=== PATIENT | female | born 1945 | race Caucasian/White ===

== ENCOUNTER 2018-04-26 04:23 | Emergency (ER) | payer MEDICARE, OTHER ==
[2018-04-26 04:34] VITALS: TEMP 97.9
[2018-04-26] MEDS ORDERED: DIPH,PERTUS(ACELL)TETVAC-LF 0.5 ML VIAL IM ONE (04:43)
--- NOTE | 2018-04-26 04:48 | ED ---
Fall HPI - General Chief Complaint: Fall Stated Complaint: Fall/Hit Head Time Seen by Provider: 04/26/18 04:42 Source: patient Mode of arrival: ambulatory - History of Present Illness Initial Comments: Vanessa is a pleasant 72-year-old female who presents the emergency department today for evaluation of a laceration to her scalp. Patient reports that she was sleeping comfortably in her bed, her woke up to use the restroom and she believes that may have disturbed her, she subsequently believe she rolled out of bed striking the back of her head on her nightstand. She doesn't believe she lost consciousness. She have any vision changes or headache. She did note that her scalp was bleeding. She states that her left her scalp and noted that she had a pretty large V shaped laceration in decided to bring her to the ER for possible stitches. Patient denies any headache, vision changes, focal neurologic deficits, any loss of consciousness with the fall, any nausea or vomiting, she denies any neck pain. She's been ambulatory since the fall. She does take daily aspirin but is on no other antiplatelet or anticoagulant medications. She denies any other pain or injuries. - Related Data Home Medications Medication Instructions Recorded Confirmed ALPRAZolam [Xanax] 0.25 mg PO BID PRN 04/22/16 06/16/16 Alendronate Sodium [Fosamax] 70 mg PO INGRAM 04/22/16 06/16/16 Aspirin [Adult Low Dose Aspirin EC] 81 mg PO DAILY 04/22/16 06/16/16 Atenolol [Tenormin] 100 mg PO QAM 04/22/16 06/16/16 Calcium Carbonate/Vitamin D3 1 each PO DAILY 04/22/16 06/16/16 [Calcium 500-Vit D3 600 Tablet] Citalopram Hydrobromide [CeleXA] 40 mg PO QAM 04/22/16 06/16/16 Disulfiram [Antabuse] 250 mg PO QAM 04/22/16 06/16/16 Ibuprofen [Motrin] 600 mg PO DIRECTED PRN 04/22/16 06/16/16 Lovastatin [Mevacor] 40 mg PO QAM 04/22/16 06/16/16 Melatonin 3 mg PO HS PRN 04/22/16 06/16/16 Multivitamins, Thera [Multivitamin] 1 tab PO DAILY 04/22/16 06/16/16 Cevimeline [Evoxac] 30 mg PO TID PRN 06/17/16 06/17/16 Allergies Allergy/AdvReac Type Severity Reaction Status Date / Time codeine Allergy Unknown Nausea & Verified 04/26/18 04:34 Vomiting miconazole Allergy Unknown Rash/Hives Verified 04/26/18 04:34 [From Neosporin AF] Review of Systems ROS Statement: Those systems with pertinent positive or pertinent negative responses have been documented in the HPI. ROS Other: All systems not noted in ROS Statement are negative. Past Medical History Past Medical History: Hyperlipidemia, Hypertension Additional Past Medical History / Comment(s): OSTEOPENIA History of Any Multi-Drug Resistant Organisms: None Reported Past Surgical History: Bladder Surgery, Tubal Ligation Additional Past Surgical History / Comment(s): D & C. COLONOSCOPY Past Anesthesia/Blood Transfusion Reactions: No Reported Reaction Past Psychological History: Anxiety, Depression Smoking Status: Former smoker - Past Family History Father Family Medical History: Cancer Sister(s) Family Medical History: Cancer General Exam - General Exam Comments Initial Comments: Physical Exam GENERAL: Patient is well-developed and well-nourished. Patient is nontoxic and well- hydrated and is in no distress. HENT: Normocephalic, no hunt signs Laceration on the right sided parietal temporal scalp, laceration is V-shaped approximately 2 cm in length on each side of the V. EYES: PERRL, EOMI PULMONARY: Unlabored respirations. No audible rales rhonchi or wheezing was noted. CARDIOVASCULAR: There is a regular rate and rhythm without any murmurs gallops or rubs. ABDOMEN: Soft and nontender with normal bowel sounds. SKIN: Skin is clear with no lesions or rashes and otherwise unremarkable. : Deferred NEUROLOGIC: Patient is alert and oriented x3. Moving all extremities spontaneously MUSCULOSKELETAL: Normal extremities with adequate strength and full range of motion. No lower extremity swelling or edema. No calf tenderness. PSYCHIATRIC: Normal psychiatric evaluation. Limitations: no limitations Limitations: no limitations Course Vital Signs 04/26/18 04:32 Temperature 97.9 F Pulse Rate 64 Respiratory 16 Rate Blood Pressure 157/84 O2 Sat by Pulse 93 L Oximetry Procedures - Laceration Laceration #1 Consent Obtained: verbal consent Time Out Performed: Yes Indication: laceration Site: scalp Description: flap Depth: simple, single layer Anesthetic Used: lidocaine 1%, with epi Pre-repair: wound explored, irrigated extensively Size of Sutures: other (staple) Number of Sutures: 9 Patient Tolerated Procedure: well, no complications Medical Decision Making - Medical Decision Making Patient was seen and evaluated history was obtained from the patient and her . Patient rolled out of bed striking the back of her head on her nightstand resulting in a laceration. She had bleeding which was controlled with direct pressure and an ice pack prior to arrival. Patient will loss of consciousness. Patient is uncertain of her last tetanus but believes it was sometime around 2005. Patient does take an aspirin so CT of the head and cervical spine were ordered. There are no other injuries. Cervical spine was cleared via Nexus criteria Patient no midline cervical spine tenderness, no tenderness with range of motion , no distracting injuries, no focal neurologic deficits, no evidence of intoxication CT head and cervical spine with no acute intracranial processes Laceration was anesthetized with topical let, it was irrigated and approximated. Laceration was repaired with 9 jumana patient tolerated the jumana well Staple care was discussed with the patient Closed head injury and return parameters were discussed with the patient and her at bedside All questions pertaining to care were answered best my ability patient was discharged home in stable condition Disposition Clinical Impression: Fall, Scalp laceration, Encounter for administration of vaccine Disposition: HOME SELF-CARE Instructions: Fall Prevention for Older Adults (ED), Staple Care (ED) Is patient prescribed a controlled substance at d/c from ED?: No Referrals: Pilar Sanders MD [Primary Care Provider] - 1-2 days
[2018-04-26] MEDS ORDERED: LIDOCAINE/EPINEPHR/TETRACAINE 5 ML BOTTLE TOPICAL ONE (04:49)
--- NOTE | 2018-04-26 05:44 | CT ---
EXAM: CT Head Without Intravenous Contrast CLINICAL HISTORY: Reason: Pain. Fall with head injury TECHNIQUE: Axial computed tomography images of the head/brain without intravenous contrast. CTDI is 27.7 mGy and DLP is 611.4 mGy-cm. This CT exam was performed using one or more of the following dose reduction techniques: automated exposure control, adjustment of the mA and/or kV according to patient size, and/or use of iterative reconstruction technique. COMPARISON: No relevant prior studies available. FINDINGS: Brain: No evidence of acute transcortical cerebral infarction or intracranial hemorrhage. No abnormal mass effect or midline shift. No abnormal extra-axial collections. Mild cerebral atrophy and chronic white matter ischemic changes. Ventricles: Unremarkable. Bones/joints: No skull fracture identified. Soft tissues: Mild right parietal scalp soft tissue swelling/contusion and probable laceration. Sinuses: Imaged paranasal sinuses are clear. Mastoid air cells: Mastoid sinuses are clear. IMPRESSION: No evidence of acute intracranial abnormality. EXAM: CT Cervical Spine Without Intravenous Contrast CLINICAL HISTORY: Reason: Pain. Fall with head injury TECHNIQUE: Axial computed tomography images of the cervical spine without intravenous contrast. CTDI is 12.3 mGy and DLP is 395.3 mGy-cm. This CT exam was performed using one or more of the following dose reduction techniques: automated exposure control, adjustment of the mA and/or kV according to patient size, and/or use of iterative reconstruction technique. COMPARISON: No relevant prior studies available. FINDINGS: Vertebrae: Cervical vertebral height and alignment are within normal limits. No evidence of acute cervical fracture or subluxation. Advanced multilevel cervical disc disease, spondylosis and moderate facet joint arthropathy. Discs/spinal canal: No significant osseous cervical spinal stenosis. Soft tissues: No abnormal prevertebral soft tissue swelling. Bilateral carotid vascular calcifications. Lung apices: Biapical pleural-parenchymal scarring and apical bullous changes. IMPRESSION: No evidence of acute cervical fracture or subluxation.
[2018-04-26 06:33] VITALS: BP 197/100; PULSE 61; RESP 18
== END 2018-04-26 06:33 | disposition home or self-care (01) ==
LOC: EC 04:23
DX: S01.01XA Laceration without foreign body of scalp, initial encounter (principal); E78.5 Hyperlipidemia, unspecified; I10 Essential (primary) hypertension; M85.80 Other specified disorders of bone density and structure, unspecified site; F41.9 Anxiety disorder, unspecified; F32.9 Major depressive disorder, single episode, unspecified; Z23 Encounter for immunization; Z87.891 Personal history of nicotine dependence; Z98.51 Tubal ligation status; Z98.890 Other specified postprocedural states; Z79.82 Long term (current) use of aspirin; Z79.83 Long term (current) use of bisphosphonates; Z79.899 Other long term (current) drug therapy; Z88.1 Allergy status to other antibiotic agents; Z88.5 Allergy status to narcotic agent
CPT/HCPCS: 12002; 70450; 72125; 90471; 90715; 99283

== ENCOUNTER → 2018-10-09 | Outpatient (CLI) | payer MEDICARE, OTHER ==
--- NOTE | 2018-10-09 15:05 | CT ---
EXAMINATION TYPE: CT chest wo con DATE OF EXAM: 10/09/2018 COMPARISON: NONE HISTORY: Follicular lymphoma per order. CT DLP: 339.30 mGycm. Automated Exposure Control for Dose Reduction was Utilized. TECHNIQUE: CT scan of the thorax is performed without IV contrast. FINDINGS: LUNGS: Moderate underlying emphysematous change is present most prominent in the upper lobes. There i s 5 x 4 mm groundglass nodule anteriorly right midlung axial image 29. There is 4 x 3 mm scarlike [place] inferior medial to this axial image 32. There is bibasilar linear scarring and/or atelectasis. T here is 2 to 3 mm lateral left mid lung nodule axial image 28. No pleural effusion or pneumothorax is noted bilaterally. MEDIASTINUM: Lack of IV contrast is noted to limit evaluation for mediastinal and especially hilar ad enopathy. There are no definitive greater than 1 cm hilar or mediastinal lymph nodes. No cardiomega ly or pericardial effusion is seen. Main pulmonary artery measures 2.8 cm diameter axial image 24. Th ere is moderate to severe 3 vessel coronary artery calcification and/or coronary stents, correlate cl inically. There is mild to moderate calcified plaque of aorta extending into branch vessels. OTHER: Liver is diffusely low dense consistent with fatty infiltration. IMPRESSION: Moderate emphysematous change without acute pulmonary process. Scattered small nodules me asuring up to 5 mm in diameter. Advise CT follow-up in one year time to reassess as per Fleischner So ciety recommendations.
== END | disposition home or self-care (01) ==
LOC: RADCTMAIN 12:51
PROVIDERS: ATTEND Internal Medicine Sleep Medicine
DX: J43.9 Emphysema, unspecified (principal); R91.8 Other nonspecific abnormal finding of lung field
CPT/HCPCS: 71250

== ENCOUNTER → 2018-10-19 | Outpatient (CLI) | payer MEDICARE, OTHER ==
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
--- NOTE | 2018-10-23 07:58 | MM ---
Reason for exam: screening (asymptomatic). Last mammogram was performed 1 year and 6 months ago. History: Patient is postmenopausal and is nulliparous. Physical Findings: A clinical breast exam by your physician is recommended on an annual basis and results should be correlated with mammographic findings. MG 3D Screening Mammo W/Cad Bilateral CC and MLO view(s) were taken. Prior study comparison: April 12, 2017, mammogram, performed at [facility]. April 06, 2016, mammogram, performed at [facility]. There are scattered fibroglandular densities. No significant changes when compared with prior studies. ASSESSMENT: Benign, BI-RAD 2 RECOMMENDATION: Routine screening mammogram of both breasts in 1 year.
== END | disposition home or self-care (01) ==
LOC: RADMAMWWP 12:55
PROVIDERS: ATTEND Internal Medicine
DX: Z12.31 Encounter for screening mammogram for malignant neoplasm of breast (principal); M85.851 Other specified disorders of bone density and structure, right thigh; M85.852 Other specified disorders of bone density and structure, left thigh
CPT/HCPCS: 77063; 77067; 77080

== ENCOUNTER → 2019-04-03 | Outpatient (CLI) | payer MEDICARE, OTHER ==
--- NOTE | 2019-04-04 04:45 | CT ---
EXAMINATION TYPE: CT chest wo con DATE OF EXAM: 04/03/2019 COMPARISON: 10/09/2018 HISTORY: 73-year-old female solitary pulmonary nodule. Follow up nodule per patient. No complaints a t time of scan. TECHNIQUE: Contiguous axial scanning of the chest without IV contrast. Coronal and sagittal reconstru ctions performed. CT DLP: 266.8 mGycm Automated exposure control for dose reduction was used. FINDINGS: The heart is normal size without pericardial effusion. Extensive coronary vessel calcifications are p resent. Mild aortic valvular calcifications. Ascending aorta ectatic at 3.6 cm measured on sagittal series with moderate atherosclerotic arch calc ifications and bovine configuration to the aortic arch. No thoracic lymphadenopathy by CT size criteria. Redemonstrated moderate emphysematous change with mild diffuse bronchial wall thickening. Right great er than left apical pleural parenchymal scarring. 5 mm anterior right midlung pulmonary nodule, axial image 32, stable. Tiny 3 mm peripheral left midlung pulmonary nodule axial image 29 is less defined. 4 mm right upper lobe pulmonary nodule, axial image 28 unchanged. No new pulmonary nodules are seen. No consolidation or pleural effusion. Visualized upper abdomen shows a hilar splenule. Bones: No osseous destructive process. Degenerative disc disease partially seen in the lower cervical spine. IMPRESSION: 1. COPD WITH MODERATE EMPHYSEMA. 2. A FEW SCATTERED PULMONARY NODULES MEASURING UP TO 5 MM REMAIN UNCHANGED FOR 6 MONTHS. AN ADDITIONA L 6-12 MONTH FOLLOW-UP CAN REASSESS.
== END | disposition home or self-care (01) ==
LOC: RADCTMAIN 12:18
PROVIDERS: ATTEND Internal Medicine Sleep Medicine
DX: J43.9 Emphysema, unspecified (principal); R91.1 Solitary pulmonary nodule
CPT/HCPCS: 71250

== ENCOUNTER → 2020-02-08 | Outpatient (CLI) | payer MEDICARE, OTHER ==
--- NOTE | 2020-02-12 08:51 | MM ---
Reason for exam: screening (asymptomatic). Last mammogram was performed 1 year and 4 months ago. History: Patient is postmenopausal and is nulliparous. Physical Findings: A clinical breast exam by your physician is recommended on an annual basis and results should be correlated with mammographic findings. MG 3D Screening Mammo W/Cad Bilateral CC and MLO view(s) were taken. Prior study comparison: October 19, 2018, bilateral MG 3d screening mammo w/cad. April 12, 2017, mammogram, performed at [facility]. There are scattered fibroglandular densities. There is chronic nodularity in the left breast. No significant changes when compared with prior studies. ASSESSMENT: Negative, BI-RAD 1 RECOMMENDATION: Routine screening mammogram of both breasts in 1 year.
== END | disposition home or self-care (01) ==
LOC: RADMAMWWP 11:25
PROVIDERS: ATTEND Family Medicine
DX: Z12.31 Encounter for screening mammogram for malignant neoplasm of breast (principal)
CPT/HCPCS: 77063; 77067

== ENCOUNTER → 2020-09-08 | Outpatient (CLI) | payer MEDICARE, OTHER ==
--- NOTE | 2020-09-08 11:21 | US ---
EXAMINATION TYPE: US gallbladder DATE OF EXAM: 09/08/2020 COMPARISON: NONE CLINICAL HISTORY: 75-year-old female R10.10 Upper abdominal pain. TECHNIQUE: Multiple sonographic images of the right upper quadrant are obtained. FINDINGS: EXAM MEASUREMENTS: Liver Length: 10.7 cm Gallbladder Wall: 0.2 cm CBD: 0.4 cm Right Kidney: 9.5 x 4.2 x 4.3 cm Pancreas: Small portion of the pancreatic neck is visualized. Remainder is obscured by bowel gas sha dowing. Liver: Slightly echogenic in appearance. No focal lesion. Gallbladder: No stones seen Evidence for sonographic Salazar's sign: No CBD: wnl Right Kidney: No hydronephrosis. IMPRESSION: Slightly echogenic appearance to the liver. This may reflect mild fatty infiltration. No gallstones o r biliary ductal dilatation.
== END ==
LOC: RADUSWWP 07:53
PROVIDERS: ATTEND Family Medicine
DX: R10.10 Upper abdominal pain, unspecified (principal)
CPT/HCPCS: 76705

== ENCOUNTER → 2020-12-22 | Outpatient (CLI) | payer MEDICARE, OTHER ==
--- NOTE | 2020-12-24 14:47 | BD ---
EXAMINATION TYPE: Axial Bone Density DATE OF EXAM: 12/22/2020 COMPARISON: 10.19.2018 CLINICAL HISTORY: 75 YR OLD FEMALE......ICD-10 CODE: Z78.0 POST MENOPAUSAL Height: 63.4 Weight: 171 FRAX RISK QUESTIONS: NOTHING ADDITIONAL TO ADD HERE RISK FACTORS HISTORY OF: Postmenopausal woman: YES, AT AGE 57 YRS OLD Take estrogen and/or progesterone medications: YES, FOR ABOUT 4 YRS ....NONE NOW Hyperparathyroidism: NO Adrenal Insufficiency: NO MEDICATIONS: Osteoporosis Medications: YES, ALTENOL, FOR ABOUT 15-20 YRS Additional Medications: BP MEDS, CHOLESTEROL MEDS, VIT D AND CALCIUM Additional History: HYPERTENSION, CHOLESTEROL... EXAM MEASUREMENTS: Bone mineral densitometry was performed using the [employer] System. Bone mineral density as measured about the Lumbar spine is: ----- L1-L4(G/cm2): 1.344 T Score Values are as follows: ----- L1: -0.4 ----- L2: 0.6 ----- L3: 2.1 ----- L4: 2.9 ----- L1-L4: 1.4 Bone mineral density has: Increased 3.0% since study of: 10.19.2018 Bone mineral density about the R hip (g/cm2): 0.864 Bone mineral density about the L hip (g/cm2): 0.874 T Score values are as follows: -----R Neck: -1.5 -----L Neck: -1.7 -----R Total: -1.1 -----L Total: -1.1 Bone mineral density has: Increased 1.3% since study of: 10.19.2018 FRAX%s: THERE IS A 11.2% CHANCE FOR A MAJOR OSTEOPOROTIC FX AND A 2.2% FOR HIP.....PROBABILITY FOR FX IN 10 YRS TIME IMPRESSION: Osteopenia (T Score between -2.5 and -1). There is slightly increased risk of fracture and the patient may be considered for treatment. Re-Screen 2-5 years. NOTE: T-SCORE=SD OF THE YOUNG ADULT MEAN.
== END | disposition home or self-care (01) ==
LOC: RADBDWWP 11:16
PROVIDERS: ATTEND Family Medicine
DX: Z13.820 Encounter for screening for osteoporosis (principal); M85.89 Other specified disorders of bone density and structure, multiple sites; Z78.0 Asymptomatic menopausal state
CPT/HCPCS: 77080

== ENCOUNTER 2021-06-23 17:35 | Inpatient (IN) | payer MEDICARE, OTHER ==
--- NOTE | 2021-06-23 17:47 | ED ---
Fall HPI - General Chief Complaint: Fall Stated Complaint: FALL Time Seen by Provider: 06/23/21 17:40 Source: EMS Mode of arrival: EMS - History of Present Illness Initial Comments: 75-year-old female presents to the emergency department for a fall. States that on Tuesday she attempted to get up from the couch and felt extremely dizzy. She ended up falling backwards and hit her head on the carpet. She sustained a laceration which was bleeding. She did not have any loss of consciousness and she is not on any blood thinners. She lives alone and was unable to get up off the floor. She crawled to her bed and states that she has been laying there since Tuesday. She has been unable to get up and make food for herself. States that she has continued to be able to drink her UV blue vodka. States that she normally drinks 2 shots a night. Today she called her niece and nephew who ended up calling an ambulance. She is complaining of neck pain and therefore they put her in a c-collar. She was given 100 g of fentanyl by EMS prior to arrival. She denies having any chest pain or shortness of breath prior to the incident. No nausea or vomiting. Denies headaches or visual changes. No numbness, tingling or weaknesses in her extremities. No other alleviating, precipitating or modifying factors - Related Data Home Medications Medication Instructions Recorded Confirmed Aspirin [Adult Low Dose Aspirin EC] 81 mg PO DAILY 04/22/16 06/23/21 Atenolol [Tenormin] 100 mg PO DAILY 04/22/16 06/23/21 Atorvastatin Calcium [Lipitor] 40 mg PO HS 06/23/21 06/23/21 Escitalopram [Lexapro] 10 mg PO DAILY 06/23/21 06/23/21 Memantine [Namenda] 10 mg PO BID 06/23/21 06/23/21 Previous Rx's Medication Instructions Recorded Acetaminophen Tab [Tylenol] 650 mg PO Q6HR PRN tab 06/26/21 Calcium Carbonate [Tums] 1,000 mg PO QID PRN tab 06/26/21 Folic Acid 1 mg PO DAILY@1200 tab 06/26/21 Ibuprofen [Motrin] 400 mg PO Q6HR PRN tab 06/26/21 Thiamine [Vitamin B-1] 100 mg PO BID-W/MEALS tab 06/26/21 Allergies Allergy/AdvReac Type Severity Reaction Status Date / Time codeine Allergy Unknown Nausea & Verified 06/23/21 21:53 Vomiting miconazole Allergy Unknown Rash/Hives Verified 06/23/21 21:53 [From Neosporin AF] Review of Systems ROS Statement: Those systems with pertinent positive or pertinent negative responses have been documented in the HPI. ROS Other: All systems not noted in ROS Statement are negative. Past Medical History Past Medical History: Hyperlipidemia, Hypertension Additional Past Medical History / Comment(s): OSTEOPENIA History of Any Multi-Drug Resistant Organisms: None Reported Past Surgical History: Bladder Surgery, Tubal Ligation Additional Past Surgical History / Comment(s): D & C. COLONOSCOPY Past Anesthesia/Blood Transfusion Reactions: No Reported Reaction Past Psychological History: Anxiety, Depression Smoking Status: Former smoker Past Alcohol Use History: Occasional Past Drug Use History: None Reported - Past Family History Father Family Medical History: Cancer Sister(s) Family Medical History: Cancer Mother Family Medical History: Myocardial Infarction ([place]) Additional Family Medical History / Comment(s): Mother of a [place] at the age of 62 yrs. General Exam Limitations: no limitations General appearance: alert, in no apparent distress Head exam: Present: normocephalic, other (5 cm laceration right occiput. mild yellow drainage. no bleeding) Eye exam: Present: normal appearance, PERRL, EOMI. Absent: scleral icterus, conjunctival injection, periorbital swelling ENT exam: Present: normal exam, mucous membranes moist Neck exam: Present: normal inspection. Absent: tenderness, meningismus, lymphadenopathy Respiratory exam: Present: normal lung sounds bilaterally, chest wall tenderness (right sided). Absent: respiratory distress, wheezes, rales, rhonchi, stridor Cardiovascular Exam: Present: regular rate, normal rhythm, normal heart sounds. Absent: systolic murmur, diastolic murmur, rubs, gallop, clicks GI/Abdominal exam: Present: soft, normal bowel sounds. Absent: distended, tenderness, guarding, rebound, rigid Extremities exam: Present: normal inspection, full ROM, normal capillary refill. Absent: tenderness, pedal edema, joint swelling, calf tenderness Back exam: Present: normal inspection Neurological exam: Present: alert, oriented X3, CN II-XII intact Psychiatric exam: Present: normal affect, normal mood Skin exam: Present: warm, dry, intact, normal color. Absent: rash Course Vital Signs 06/23/21 06/23/21 06/23/21 17:39 19:15 22:00 Temperature 98.5 F Pulse Rate 94 79 83 Pulse Rate [ Pulse Oximetery ] Pulse Rate [ Right] Respiratory 20 20 20 Rate Blood Pressure 172/93 176/88 166/76 Blood Pressure [Right Arm] O2 Sat by Pulse 95 95 96 Oximetry 06/23/21 06/24/21 06/24/21 23:30 02:00 07:54 Temperature 97.5 F L 98 F Pulse Rate 97 Pulse Rate [ Pulse Oximetery ] Pulse Rate [ 99 103 H Right] Respiratory 20 18 20 Rate Blood Pressure 141/91 Blood Pressure 123/76 153/89 [Right Arm] O2 Sat by Pulse 99 97 90 L Oximetry 06/24/21 06/24/21 06/24/21 08:35 08:37 15:04 Temperature 97.8 F Pulse Rate Pulse Rate [ 99 72 Pulse Oximetery ] Pulse Rate [ 103 H Right] Respiratory 20 18 16 Rate Blood Pressure Blood Pressure 118/65 [Right Arm] O2 Sat by Pulse 99 98 Oximetry Medical Decision Making - Medical Decision Making Upon arrival patient is placed into room 3. A thorough history and physical exam was performed. Laboratory studies are conducted. Patient was given 500 cc saline. Laboratory studies are conducted and the patient is sent for a CT of her head and cervical spine. X-rays of her right ribs and chest is also performed. Laboratory studies are reviewed and demonstrate a creatinine of 1.1. AST and ALT mildly elevated. Serum alcohol is on Lasix. Covid not detected. CT of the brain and cervical spine demonstrates no acute intracranial process. Nonspecific white matter changes likely secondary to chronic small vessel ische dayanara disease. No cervical spine fracture. We did clean the patient's posterior scalp laceration. Measures approximately 5 cm in size. Wound edges are rounded. There is some yellow drainage from the site. As I am concerned for infection it is washed out and the patient is given 1 g of Rocephin. Chest x- ray demonstrates right sided ninth and 10th rib fractures are acute. Rib fractures 10 and 11 are remote. Discuss these results with the patient. She does live alone and has not been caring for herself I did recommend admission. Magnesium and potassium replaced. Called and spoke with Dr. Burnham. We'll place medicine on consult. Patient remained in stable condition awaiting a bed - Lab Data Result diagrams: 06/26/21 05:43 06/26/21 05:43 Lab Results 06/23/21 06/23/21 06/23/21 Range/Units 17:52 17:52 17:52 WBC 10.0 (3.8-10.6) k/uL RBC 3.80 (3.80-5.40) m/uL Hgb 13.0 (11.4-16.0) gm/dL Hct 38.8 (34.0-46.0) % MCV 101.9 H (80.0-100.0) fL MCH 34.3 (25.0-35.0) pg MCHC 33.6 (31.0-37.0) g/dL RDW 11.7 (11.5-15.5) % Plt Count 354 (150-450) k/uL MPV 7.7 Immature Gran % (Auto) % Absolute Nucleated RBC (0.00-0.00) X 10*3/uL Neutrophils % 85 % Lymphocytes % 8 % Monocytes % 5 % Eosinophils % 1 % Basophils % 0 % Immature Gran # (0.00-0.04) X 10*3/uL Neutrophils # 8.5 H (1.3-7.7) k/uL Lymphocytes # 0.8 L (1.0-4.8) k/uL Monocytes # 0.5 (0-1.0) k/uL Eosinophils # 0.1 (0-0.7) k/uL Basophils # 0.0 (0-0.2) k/uL NRBC/100 WBC Diff (0.0-0.0) /100 WBCS Macrocytosis PT 12.2 H (9.0-12.0) sec INR 1.2 H (<1.2) APTT 25.9 (22.0-30.0) sec Sodium 137 (137-145) mmol/L Potassium 3.2 L (3.5-5.1) mmol/L Chloride 102 (98-107) mmol/L Carbon Dioxide 22 (22-30) mmol/L Anion Gap 13 mmol/L BUN 25 H (7-17) mg/dL Creatinine 1.16 H (0.52-1.04) mg/dL Est GFR (CKD-EPI)AfAm 54 (>60 ml/min/1.73 sqM) Est GFR (CKD-EPI)NonAf 47 (>60 ml/min/1.73 sqM) BUN/Creatinine Ratio (12.00-20.00) Ratio Glucose 134 H (74-99) mg/dL Plasma Lactic Acid Mason (0.7-2.0) mmol/L Calcium 8.3 L (8.4-10.2) mg/dL Magnesium 1.5 L (1.6-2.3) mg/dL Total Bilirubin 0.8 (0.2-1.3) mg/dL AST 61 H (14-36) U/L ALT 58 H (4-34) U/L Alkaline Phosphatase 145 H (38-126) U/L Creatine Kinase 174 H (30-135) U/L Troponin I (0.000-0.034) ng/mL Total Protein 6.2 L (6.3-8.2) g/dL Albumin 3.1 L (3.5-5.0) g/dL Globulin (1.6-3.3) g/dL Albumin/Globulin Ratio (1.60-3.17) g/dL TSH 3.290 (0.465-4.680) mIU/L Urine Color Urine Appearance (Clear) Urine pH (5.0-8.0) Ur Specific Chase (1.001-1.035) Urine Protein (Negative) Urine Glucose (UA) (Negative) Urine Ketones (Negative) Urine Blood (Negative) Urine Nitrite (Negative) Urine Bilirubin (Negative) Urine Urobilinogen (<2.0) mg/dL Ur Leukocyte Esterase (Negative) Urine RBC (0-5) /hpf Urine WBC (0-5) /hpf Ur Squamous Epith Cells (0-4) /hpf Urine Bacteria (None) /hpf Hyaline Casts (0-2) /lpf Urine Mucus (None) /hpf Serum Alcohol 26 mg/dL Coronavirus (PCR) (Not Detectd) 06/23/21 06/23/21 06/23/21 Range/Units 17:52 17:52 19:35 WBC (3.8-10.6) k/uL RBC (3.80-5.40) m/uL Hgb (11.4-16.0) gm/dL Hct (34.0-46.0) % MCV (80.0-100.0) fL MCH (25.0-35.0) pg MCHC (31.0-37.0) g/dL RDW (11.5-15.5) % Plt Count (150-450) k/uL MPV Immature Gran % (Auto) % Absolute Nucleated RBC (0.00-0.00) X 10*3/uL Neutrophils % % Lymphocytes % % Monocytes % % Eosinophils % % Basophils % % Immature Gran # (0.00-0.04) X 10*3/uL Neutrophils # (1.3-7.7) k/uL Lymphocytes # (1.0-4.8) k/uL Monocytes # (0-1.0) k/uL Eosinophils # (0-0.7) k/uL Basophils # (0-0.2) k/uL NRBC/100 WBC Diff (0.0-0.0) /100 WBCS Macrocytosis PT (9.0-12.0) sec INR (<1.2) APTT (22.0-30.0) sec Sodium (137-145) mmol/L Potassium (3.5-5.1) mmol/L Chloride (98-107) mmol/L Carbon Dioxide (22-30) mmol/L Anion Gap mmol/L BUN (7-17) mg/dL Creatinine (0.52-1.04) mg/dL Est GFR (CKD-EPI)AfAm (>60 ml/min/1.73 sqM) Est GFR (CKD-EPI)NonAf (>60 ml/min/1.73 sqM) BUN/Creatinine Ratio (12.00-20.00) Ratio Glucose (74-99) mg/dL Plasma Lactic Acid Mason 1.8 (0.7-2.0) mmol/L Calcium (8.4-10.2) mg/dL Magnesium (1.6-2.3) mg/dL Total Bilirubin (0.2-1.3) mg/dL AST (14-36) U/L ALT (4-34) U/L Alkaline Phosphatase (38-126) U/L Creatine Kinase (30-135) U/L Troponin I 0.019 (0.000-0.034) ng/mL Total Protein (6.3-8.2) g/dL Albumin (3.5-5.0) g/dL Globulin (1.6-3.3) g/dL Albumin/Globulin Ratio (1.60-3.17) g/dL TSH (0.465-4.680) mIU/L Urine Color Yellow Urine Appearance Cloudy H (Clear) Urine pH 5.5 (5.0-8.0) Ur Specific Chase 1.022 (1.001-1.035) Urine Protein 1+ H (Negative) Urine Glucose (UA) Trace H (Negative) Urine Ketones Negative (Negative) Urine Blood Negative (Negative) Urine Nitrite Negative (Negative) Urine Bilirubin Negative (Negative) Urine Urobilinogen <2.0 (<2.0) mg/dL Ur Leukocyte Esterase Negative (Negative) Urine RBC <1 (0-5) /hpf Urine WBC 3 (0-5) /hpf Ur Squamous Epith Cells 4 (0-4) /hpf Urine Bacteria Few H (None) /hpf Hyaline Casts 18 H (0-2) /lpf Urine Mucus Rare H (None) /hpf Serum Alcohol mg/dL Coronavirus (PCR) (Not Detectd) 06/23/21 06/24/21 06/24/21 Range/Units 21:46 05:42 05:42 WBC 9.7 (3.8-10.6) k/uL RBC 3.60 L (3.80-5.40) m/uL Hgb 12.3 (11.4-16.0) gm/dL Hct 38.1 (34.0-46.0) % MCV 105.6 H (80.0-100.0) fL MCH 34.3 (25.0-35.0) pg MCHC 32.4 (31.0-37.0) g/dL RDW 12.5 (11.5-15.5) % Plt Count 338 (150-450) k/uL MPV 7.7 Immature Gran % (Auto) % Absolute Nucleated RBC (0.00-0.00) X 10*3/uL Neutrophils % 87 % Lymphocytes % 6 % Monocytes % 3 % Eosinophils % 3 % Basophils % 0 % Immature Gran # (0.00-0.04) X 10*3/uL Neutrophils # 8.4 H (1.3-7.7) k/uL Lymphocytes # 0.6 L (1.0-4.8) k/uL Monocytes # 0.3 (0-1.0) k/uL Eosinophils # 0.3 (0-0.7) k/uL Basophils # 0.0 (0-0.2) k/uL NRBC/100 WBC Diff (0.0-0.0) /100 WBCS Macrocytosis Slight PT (9.0-12.0) sec INR (<1.2) APTT (22.0-30.0) sec Sodium 135 L (137-145) mmol/L Potassium 3.6 (3.5-5.1) mmol/L Chloride 101 (98-107) mmol/L Carbon Dioxide 25 (22-30) mmol/L Anion Gap 9 mmol/L BUN 25 H (7-17) mg/dL Creatinine 1.11 H (0.52-1.04) mg/dL Est GFR (CKD-EPI)AfAm 57 (>60 ml/min/1.73 sqM) Est GFR (CKD-EPI)NonAf 50 (>60 ml/min/1.73 sqM) BUN/Creatinine Ratio (12.00-20.00) Ratio Glucose 107 H (74-99) mg/dL Plasma Lactic Acid Mason (0.7-2.0) mmol/L Calcium 8.1 L (8.4-10.2) mg/dL Magnesium (1.6-2.3) mg/dL Total Bilirubin (0.2-1.3) mg/dL AST (14-36) U/L ALT (4-34) U/L Alkaline Phosphatase (38-126) U/L Creatine Kinase (30-135) U/L Troponin I (0.000-0.034) ng/mL Total Protein (6.3-8.2) g/dL Albumin (3.5-5.0) g/dL Globulin (1.6-3.3) g/dL Albumin/Globulin Ratio (1.60-3.17) g/dL TSH (0.465-4.680) mIU/L Urine Color Urine Appearance (Clear) Urine pH (5.0-8.0) Ur Specific Chase (1.001-1.035) Urine Protein (Negative) Urine Glucose (UA) (Negative) Urine Ketones (Negative) Urine Blood (Negative) Urine Nitrite (Negative) Urine Bilirubin (Negative) Urine Urobilinogen (<2.0) mg/dL Ur Leukocyte Esterase (Negative) Urine RBC (0-5) /hpf Urine WBC (0-5) /hpf Ur Squamous Epith Cells (0-4) /hpf Urine Bacteria (None) /hpf Hyaline Casts (0-2) /lpf Urine Mucus (None) /hpf Serum Alcohol mg/dL Coronavirus (PCR) Not Detected (Not Detectd) 06/24/21 06/25/21 06/25/21 Range/Units 05:42 06:05 06:05 WBC 7.00 (3.8-10.6) k/uL RBC 3.26 L (3.80-5.40) m/uL Hgb 11.0 L (11.4-16.0) gm/dL Hct 33.2 L (34.0-46.0) % MCV 101.8 H (80.0-100.0) fL MCH 33.7 H (25.0-35.0) pg MCHC 33.1 (31.0-37.0) g/dL RDW 11.9 (11.5-15.5) % Plt Count 260 (150-450) k/uL MPV 10.6 Immature Gran % (Auto) 0.3 % Absolute Nucleated RBC 0 (0.00-0.00) X 10*3/uL Neutrophils % 69.0 % Lymphocytes % 14.7 % Monocytes % 5.1 % Eosinophils % 10.3 % Basophils % 0.6 % Immature Gran # 0.02 (0.00-0.04) X 10*3/uL Neutrophils # 4.83 (1.3-7.7) k/uL Lymphocytes # 1.03 (1.0-4.8) k/uL Monocytes # 0.36 (0-1.0) k/uL Eosinophils # 0.72 H (0-0.7) k/uL Basophils # 0.04 (0-0.2) k/uL NRBC/100 WBC Diff 0 (0.0-0.0) /100 WBCS Macrocytosis PT (9.0-12.0) sec INR (<1.2) APTT (22.0-30.0) sec Sodium 132 L (137-145) mmol/L Potassium 3.5 (3.5-5.1) mmol/L Chloride 103 (98-107) mmol/L Carbon Dioxide 18.5 L (22-30) mmol/L Anion Gap 10.50 mmol/L BUN 21.2 (7-17) mg/dL Creatinine 0.9 (0.52-1.04) mg/dL Est GFR (CKD-EPI)AfAm 73.5 (>60 ml/min/1.73 sqM) Est GFR (CKD-EPI)NonAf 63.4 (>60 ml/min/1.73 sqM) BUN/Creatinine Ratio 23.56 H (12.00-20.00) Ratio Glucose 84 (74-99) mg/dL Plasma Lactic Acid Mason (0.7-2.0) mmol/L Calcium 7.5 L (8.4-10.2) mg/dL Magnesium 1.8 1.4 L (1.6-2.3) mg/dL Total Bilirubin 0.40 (0.2-1.3) mg/dL AST 44 H (14-36) U/L ALT 42 (4-34) U/L Alkaline Phosphatase 120 (38-126) U/L Creatine Kinase (30-135) U/L Troponin I (0.000-0.034) ng/mL Total Protein 4.7 L (6.3-8.2) g/dL Albumin 2.6 L (3.5-5.0) g/dL Globulin 2.1 (1.6-3.3) g/dL Albumin/Globulin Ratio 1.24 L (1.60-3.17) g/dL TSH (0.465-4.680) mIU/L Urine Color Urine Appearance (Clear) Urine pH (5.0-8.0) Ur Specific Chase (1.001-1.035) Urine Protein (Negative) Urine Glucose (UA) (Negative) Urine Ketones (Negative) Urine Blood (Negative) Urine Nitrite (Negative) Urine Bilirubin (Negative) Urine Urobilinogen (<2.0) mg/dL Ur Leukocyte Esterase (Negative) Urine RBC (0-5) /hpf Urine WBC (0-5) /hpf Ur Squamous Epith Cells (0-4) /hpf Urine Bacteria (None) /hpf Hyaline Casts (0-2) /lpf Urine Mucus (None) /hpf Serum Alcohol mg/dL Coronavirus (PCR) (Not Detectd) - EKG Data EKG Comments: EKG demonstrate normal sinus rhythm with a ventricular rate of 91. OH interval 136. QRS 88. QTC of 492. No acute ST segment elevations or depressions Disposition Clinical Impression: Fall, Scalp laceration, Alcohol abuse, daily use, Rib fractures, Hypokalemia, Hypomagnesemia Disposition: ADMITTED IP TO THIS HOSP Condition: Stable Is patient prescribed a controlled substance at d/c from ED?: No Decision to Admit Reason: Admit from EC Decision Date: 06/23/21 Decision Time: 21:10
[2021-06-23] MEDS ORDERED: SODIUM CHLORIDE 0.9% 500 ML 500 ML IV STA (17:49)
[2021-06-23 18:04] LABS: Basophils % (A) 0 %; Eosinophils # (A) 0.1 k/uL (0-0.7); Eosinophils % (A) 1 %; HCT 38.8 % (34.0-46.0); Lymphocytes # (A) 0.8 k/uL (1.0-4.8); Lymphocytes % (A) 8 %; MCH 34.3 pg (25.0-35.0); MCHC 33.6 g/dL (31.0-37.0); MCV 101.9 fL (80.0-100.0); Mean Platelet Volume 7.7; Monocytes # (A) 0.5 k/uL (0-1.0); Monocytes % (A) 5 %; Neutrophils # (A) 8.5 k/uL (1.3-7.7); Neutrophils % (A) 85 %; Platelet Count 354 k/uL (150-450); RDW 11.7 % (11.5-15.5)
[2021-06-23 18:15] LABS: ALT 58 U/L (4-34); AST 61 U/L (14-36); African American GFR (CKD) 54 (>60 ml/min/1.73 sqM); Albumin 3.1 g/dL (3.5-5.0); Alcohol 26 mg/dL; Alkaline Phosphatase 145 U/L (38-126); Anion Gap 13 mmol/L; Blood Urea Nitrogen 25 mg/dL (7-17); Calcium 8.3 mg/dL (8.4-10.2); Carbon Dioxide 22 mmol/L (22-30); Chloride 102 mmol/L (98-107); Creatine Kinase 174 U/L (30-135); Glucose 134 mg/dL (74-99); Magnesium 1.5 mg/dL (1.6-2.3); Non-African American GFR(CKD) 47 (>60 ml/min/1.73 sqM); Potassium 3.2 mmol/L (3.5-5.1); Sodium 137 mmol/L (137-145); Total Bilirubin 0.8 mg/dL (0.2-1.3); Total Protein 6.2 g/dL (6.3-8.2)
[2021-06-23 18:17] LABS: INR 1.2 (<1.2); Partial Thromboplastin Time 25.9 sec (22.0-30.0); Prothrombin Time 12.2 sec (9.0-12.0)
--- NOTE | 2021-06-23 18:57 | CT ---
EXAMINATION TYPE: CT brain cspine wo con CT DLP: 1299.7 mGycm, Automated exposure control for dose reduction was used. DATE OF EXAM: 06/23/2021 6:35 PM COMPARISON: 04/26/2018. CLINICAL INDICATION:Female, 75 years old with history of fall, pain, fall and hit head TECHNIQUE: Brain: Multiple axial CT images of the brain were obtained without IV contrast. Cspine: Axial CT images from the skull base to the inferior aspect of T2 we obtained without intraven ous contrast. Coronal and sagittal reformatted images were also reviewed. FINDINGS: Brain: Extra-axial spaces: No abnormal extra-axial fluid collections. Ventricular system: Dilatation in proportion to cerebral atrophy. Cerebral parenchyma: Cerebral atrophy. No acute intraparenchymal hemorrhage or mass effect. The zayas -white junction is well differentiated. Scattered hypoattenuating areas are seen within the white mat ter. Cerebellum: Cerebellar atrophy Mass effect: No evidence of midline shift. Intracranial vasculature: Atherosclerotic calcifications of the intracranial vessels. Soft tissues: Posterior right scalp defect. Calvarium/osseous structures: No depressed skull fracture. Paranasal sinuses and mastoid air cells: Clear. Visualized orbits: Orbital contents are intact. Cervical spine: Fracture: None. Osseous structures: Multilevel degenerative disc disease changes with endplate spurring and disc oste ophyte complex's. Vertebral alignment: Within normal limits. Spinal canal/Neural Foramina: No evidence of significant spinal canal narrowing. No evidence of signi ficant neural foramina narrowing. Neck soft tissues: Prevertebral soft tissues are within normal limits. Other: The airway is patent. Paraseptal and centrilobular emphysema changes in the lung apices. Scler osis of the visualized arterial vasculature including the carotid bifurcations. IMPRESSION: 1. No acute intracranial process. 2. Nonspecific white matter changes, likely secondary to chronic small vessel ischemic disease. 3. No evidence of cervical spine fracture. 4. Mild multilevel degenerative disc disease. 5. Emphysema 6. Posterior right scalp laceration.
[2021-06-23] MEDS ORDERED: POTASSIUM CHLORIDE ER 20 MEQ TAB.ER PO STA (19:32)
[2021-06-23] MEDS ORDERED: MAGNESIUM SULFATE-D5W PMX 1 GM in DEXTROSE/WATER 1 100ML.BAG IVPB ONE (19:33)
--- NOTE | 2021-06-23 19:53 | XR ---
EXAMINATION TYPE: XR ribs RT w pa chest xray DATE OF EXAM: 06/23/2021 7:25 PM INDICATION: Patient age:Female; 75 years old; Reason for study: fall, pain; COMPARISON: Chest radiograph 06/04/2016 TECHNIQUE: Multiple views of the right ribs. FINDINGS: There is an the anterior x-rays of the ribs 9 and 10 and remote fractures of ribs 10 and 11 Overall, the lungs are clear. The cardiac silhouette is normal in size. The remaining osseous stru ctures are intact. IMPRESSION RIBS: Acute right ribs 9 and 10 fractures anteriorly.
[2021-06-23 20:18] LABS: Appearance,Urine Cloudy (Clear); Bacteria,Urine Few /hpf; Bilirubin,Urine Negative (Negative); Blood,Urine Negative (Negative); Color,Urine Yellow; Glucose,Urine (UA) Trace (Negative); Hyaline Casts,Urine 18 /lpf (0-2); Ketones,Urine Negative (Negative); Leukocyte Esterase,Urine Negative (Negative); Mucus,Urine Rare /hpf; Nitrite,Urine Negative (Negative); PH, Urine 5.5 (5.0-8.0); Protein,Urine 1+ (Negative); RBC,Urine <1 /hpf (0-5); Specific Gravity,Urine 1.022 (1.001-1.035); Squamous Epithelial Cell,Urine 4 /hpf (0-4); Urobilinogen,Urine <2.0 mg/dL (<2.0); WBC,Urine 3 /hpf (0-5)
[2021-06-23] MEDS ORDERED: cefTRIAXone IN SWFI 1,000 MG/10 ML SYRINGE IVP STA (21:09)
[2021-06-23] MEDS ORDERED: NALOXONE 0.4 MG/ML 1 ML VIAL IV PRN (21:11)
[2021-06-23] MEDS ORDERED: MORPHINE SULFATE 4 MG/ML SYRINGE IV PRN (21:11)
[2021-06-23] MEDS ORDERED: ONDANSETRON 4 MG/2 ML VIAL IVP PRN (21:11)
[2021-06-23] MEDS ORDERED: ACETAMINOPHEN TAB 325 MG TAB PO PRN (21:11)
[2021-06-23] MEDS: SODIUM CHLORIDE 0.9% 1,000 ML IV SCH (21:45)
[2021-06-23] MEDS: IBUPROFEN 400 MG TAB PO PRN (23:27)
[2021-06-23] MEDS: MEMANTINE 10 MG TAB PO SCH (23:28)
[2021-06-23] MEDS: ATORVASTATIN 40 MG TAB PO SCH (23:28)
[2021-06-24 06:33] LABS: Basophils % (A) 0 %; Eosinophils # (A) 0.3 k/uL (0-0.7); Eosinophils % (A) 3 %; HCT 38.1 % (34.0-46.0); HGB 12.3 gm/dL (11.4-16.0); Lymphocytes # (A) 0.6 k/uL (1.0-4.8); Lymphocytes % (A) 6 %; MCH 34.3 pg (25.0-35.0); MCHC 32.4 g/dL (31.0-37.0); MCV 105.6 fL (80.0-100.0); Macrocytosis Slight; Mean Platelet Volume 7.7; Monocytes # (A) 0.3 k/uL (0-1.0); Monocytes % (A) 3 %; Neutrophils # (A) 8.4 k/uL (1.3-7.7); Neutrophils % (A) 87 %; Platelet Count 338 k/uL (150-450); RDW 12.5 % (11.5-15.5); WBC 9.7 k/uL (3.8-10.6)
[2021-06-24 06:39] LABS: Calcium 8.1 mg/dL (8.4-10.2); Potassium 3.6 mmol/L (3.5-5.1)
[2021-06-24] MEDS: IBUPROFEN 400 MG TAB PO PRN ×3 (07:19→19:11)
[2021-06-24] MEDS: ASPIRIN 81 MG PO SCH (08:24)
[2021-06-24] MEDS: MEMANTINE 10 MG TAB PO SCH ×2 (08:24→20:58)
[2021-06-24] MEDS: ESCITALOPRAM 10 MG TAB PO SCH (08:25)
[2021-06-24] MEDS: atenoloL 50 MG TAB PO SCH (08:25)
[2021-06-24] MEDS ORDERED: Magnesium Replacement Protocol 1 EACH MISC MISCELLANE PRN (12:43)
[2021-06-24] MEDS ORDERED: Potassium Replacement Protocol 1 EACH MISC MISCELLANE PRN (12:43)
[2021-06-24] MEDS ORDERED: THIAMINE 100 MG/ML 2 ML VIAL IM STA (12:45)
[2021-06-24] MEDS ORDERED: LORazepam 2 MG/ML INJ IV PRN ×3 (12:45)
--- NOTE | 2021-06-24 12:45 | P.GSHP ---
History of Present Illness H&P Date: 06/24/21 Chief Complaint: Fall, possible concussion, pain Is a 75-year-old female who had a fall 4 days ago at home. Patient states she came in the hospital due to increasing back pain. She states she feels better this morning. She had a laceration of her scalp wound cleaned in the ER last night. Patient admits to drinking vodka daily. Past Medical History Past Medical History: Hyperlipidemia, Hypertension, Pneumonia Additional Past Medical History / Comment(s): Occasional lower back pain, diverticular disease, pneumonia as a child, TB many years ago with treatment. History of Any Multi-Drug Resistant Organisms: None Reported Past Surgical History: Bladder Surgery, Tubal Ligation Additional Past Surgical History / Comment(s): D&C, colonoscopy, transorburator tape (stress incontinence). Past Anesthesia/Blood Transfusion Reactions: No Reported Reaction Past Psychological History: Anxiety, Depression Additional Psychological History / Comment(s): Pt's spouse 4 months ago, she now resides alone. She uses a cane/walker prn. She drives. Smoking Status: Former smoker Past Alcohol Use History: Occasional Additional Past Alcohol Use History / Comment(s): Pt started smoking in 1963 and quit in 2008 Past Drug Use History: None Reported - Past Family History Father Family Medical History: Cancer Sister(s) Family Medical History: Cancer Mother Family Medical History: Myocardial Infarction (CA) Additional Family Medical History / Comment(s): Mother of a CA at the age of 62 yrs. Medications and Allergies Home Medications Medication Instructions Recorded Confirmed Type Aspirin [Adult Low Dose Aspirin EC] 81 mg PO DAILY 04/22/16 06/23/21 History Atenolol [Tenormin] 100 mg PO DAILY 04/22/16 06/23/21 History Atorvastatin Calcium [Lipitor] 40 mg PO HS 06/23/21 06/23/21 History Escitalopram [Lexapro] 10 mg PO DAILY 06/23/21 06/23/21 History Memantine [Namenda] 10 mg PO BID 06/23/21 06/23/21 History Allergies Allergy/AdvReac Type Severity Reaction Status Date / Time codeine Allergy Unknown Nausea & Verified 06/23/21 21:53 Vomiting miconazole Allergy Unknown Rash/Hives Verified 06/23/21 21:53 [From Neosporin AF] Surgical - Exam Vital Signs Temp Pulse Resp BP Pulse Ox 98.5 F 94 20 172/93 95 06/23/21 17:39 06/23/21 17:39 06/23/21 17:39 06/23/21 17:39 06/23/21 17:39 - General well developed, well nourished, no distress - Eyes PERRL - ENT normal pinna, normal nares - Neck no masses - Respiratory normal expansion - Cardiovascular Rhythm: regular - Abdomen Abdomen: soft, non tender - Neurologic Back pain normal coordination, normal sensation - Musculoskeletal Back pain and right Results - Labs 06/24/21 05:42 06/24/21 05:42 Abnormal Lab Results - Last 24 Hours (Table) 06/23/21 06/23/21 06/23/21 Range/Units 17:52 17:52 17:52 RBC (3.80-5.40) m/uL MCV 101.9 H (80.0-100.0) fL Neutrophils # 8.5 H (1.3-7.7) k/uL Lymphocytes # 0.8 L (1.0-4.8) k/uL PT 12.2 H (9.0-12.0) sec INR 1.2 H (<1.2) Sodium (137-145) mmol/L Potassium 3.2 L (3.5-5.1) mmol/L BUN 25 H (7-17) mg/dL Creatinine 1.16 H (0.52-1.04) mg/dL Glucose 134 H (74-99) mg/dL Calcium 8.3 L (8.4-10.2) mg/dL Magnesium 1.5 L (1.6-2.3) mg/dL AST 61 H (14-36) U/L ALT 58 H (4-34) U/L Alkaline Phosphatase 145 H (38-126) U/L Creatine Kinase 174 H (30-135) U/L Total Protein 6.2 L (6.3-8.2) g/dL Albumin 3.1 L (3.5-5.0) g/dL Urine Appearance (Clear) Urine Protein (Negative) Urine Glucose (UA) (Negative) Urine Bacteria (None) /hpf Hyaline Casts (0-2) /lpf Urine Mucus (None) /hpf 06/23/21 06/24/2106/24/21 Range/Units 19:35 05:42 05:42 RBC 3.60 L (3.80-5.40) m/uL MCV 105.6 H (80.0-100.0) fL Neutrophils # 8.4 H (1.3-7.7) k/uL Lymphocytes # 0.6 L (1.0-4.8) k/uL PT (9.0-12.0) sec INR (<1.2) Sodium 135 L (137-145) mmol/L Potassium (3.5-5.1) mmol/L BUN 25 H (7-17) mg/dL Creatinine 1.11 H (0.52-1.04) mg/dL Glucose 107 H (74-99) mg/dL Calcium 8.1 L (8.4-10.2) mg/dL Magnesium (1.6-2.3) mg/dL AST (14-36) U/L ALT (4-34) U/L Alkaline Phosphatase (38-126) U/L Creatine Kinase (30-135) U/L Total Protein (6.3-8.2) g/dL Albumin (3.5-5.0) g/dL Urine Appearance Cloudy H (Clear) Urine Protein 1+ H (Negative) Urine Glucose (UA) Trace H (Negative) Urine Bacteria Few H (None) /hpf Hyaline Casts 18 H (0-2) /lpf Urine Mucus Rare H (None) /hpf Diabetes panel 06/23/21 06/24/21 Range/Units 17:52 05:42 Sodium 137 135 L (137-145) mmol/L Potassium 3.2 L 3.6 (3.5-5.1) mmol/L Chloride 102 101 (98-107) mmol/L Carbon Dioxide 22 25 (22-30) mmol/L BUN 25 H 25 H (7-17) mg/dL Creatinine 1.16 H 1.11 H (0.52-1.04) mg/dL Glucose 134 H 107 H (74-99) mg/dL Calcium 8.3 L 8.1 L (8.4-10.2) mg/dL AST 61 H (14-36) U/L ALT 58 H (4-34) U/L Alkaline Phosphatase 145 H (38-126) U/L Total Protein 6.2 L (6.3-8.2) g/dL Albumin 3.1 L (3.5-5.0) g/dL Thyroid panel 06/23/21 Range/Units 17:52 TSH 3.290 (0.465-4.680) mIU/L Calcium panel 06/23/21 06/24/21 Range/Units 17:52 05:42 Calcium 8.3 L 8.1 L (8.4-10.2) mg/dL Albumin 3.1 L (3.5-5.0) g/dL Pituitary panel 06/23/21 06/24/21 Range/Units 17:52 05:42 Sodium 137 135 L (137-145) mmol/L Potassium 3.2 L 3.6 (3.5-5.1) mmol/L Chloride 102 101 (98-107) mmol/L Carbon Dioxide 22 25 (22-30) mmol/L BUN 25 H 25 H (7-17) mg/dL Creatinine 1.16 H 1.11 H (0.52-1.04) mg/dL Glucose 134 H 107 H (74-99) mg/dL Calcium 8.3 L 8.1 L (8.4-10.2) mg/dL TSH 3.290 (0.465-4.680) mIU/L Adrenal panel 06/23/21 06/24/21 Range/Units 17:52 05:42 Sodium 137 135 L (137-145) mmol/L Potassium 3.2 L 3.6 (3.5-5.1) mmol/L Chloride 102 101 (98-107) mmol/L Carbon Dioxide 22 25 (22-30) mmol/L BUN 25 H 25 H (7-17) mg/dL Creatinine 1.16 H 1.11 H (0.52-1.04) mg/dL Glucose 134 H 107 H (74-99) mg/dL Calcium 8.3 L 8.1 L (8.4-10.2) mg/dL Total Bilirubin 0.8 (0.2-1.3) mg/dL AST 61 H (14-36) U/L ALT 58 H (4-34) U/L Alkaline Phosphatase 145 H (38-126) U/L Total Protein 6.2 L (6.3-8.2) g/dL Albumin 3.1 L (3.5-5.0) g/dL - Imaging Comments: CT of brain normal CT scan - abdomen: report reviewed (Posterior right rib ninth and 10th fracture) Assessment and Plan Assessment: Topical abuse Fall. Posterior right rib fractures. Patient will also receive supportive care.
[2021-06-24] MEDS: PANTOPRAZOLE 40 MG/10 ML VIAL IVP SCH ×2 (13:14→20:58)
[2021-06-24] MEDS: SODIUM CHLORIDE 0.9% 1,000 ML IV SCH (15:11)
--- NOTE | 2021-06-24 16:49 | CONS ---
CONSULTATION DATE OF SERVICE: 06/24/2021 REASON FOR CONSULTATION: Advice regarding hypertension, hyperlipidemia and other medical issues requested by Surgery. HISTORY OF PRESENT ILLNESS: This 75-year-old woman with a past medical history of hypertension, hyperlipidemia, history of bladder surgery, tubal ligation, being followed by Dr. Marti in the outpatient setting, was apparently lying on the couch. The patient attempted to get up and she fell down. Patient did not not lose consciousness, according to her. The patient was unable to move and was there for a couple of days and was calling towards the door. The family called EMS and the patient was taken to [facility] and was admitted for further evaluation and treatment. The patient was found to have a right rib fracture. Patient apparently was taking alcohol, drinking Blue Vodka, 2 to 3 drinks a day. After admission, the labs showed an MCV of 101, INR 1.2, potassium 3.2. Patient was found to have renal failure also. The creatine kinase is not available. AST and ALT were also elevated. Alcohol level was 26 on admission. There is no history of any fever, rigor or chills at this time. PAST MEDICAL HISTORY: History of hypertension, hyperlipidemia, history of pneumonia, history of back pain, bladder surgery, anxiety, depression. HOME MEDICATIONS: Namenda, Lexapro, aspirin, Lipitor, Tenormin. Doses are reviewed. ALLERGIES: CODEINE AND MICONAZOLE. FAMILY HISTORY: History of stomach cancer in the family. SOCIAL HISTORY: Previous history of smoking. Alcohol as mentioned earlier. REVIEW OF SYSTEMS: ENT: Diminished hearing. Diminished vision. CARDIOVASCULAR SYSTEM: No angina, palpitations. RESPIRATORY SYSTEM: No cough, hemoptysis. GI: No nausea, vomiting, diarrhea. : No dysuria. NERVOUS SYSTEM: No numbness, weakness. ALLERGY/IMMUNOLOGY: No asthma or hay fever. MUSCULOSKELETAL: As mentioned earlier. HEMATOLOGY/ONCOLOGY: No history of anemia. ENDOCRINE: No history of diabetes or hypothyroidism. CONSTITUTIONAL: As mentioned earlier. DERMATOLOGY: Negative. RHEUMATOLOGY: Negative. PSYCHIATRY: As mentioned earlier. PHYSICAL EXAMINATION: Patient is alert, oriented x3. Pulse is 103, blood pressure 153/89, respiration 20, temperature 98 degrees, pulse ox 90% on room air. HEENT: Conjunctivae normal. NECK: No jugular venous distention. CARDIOVASCULAR: S1, S2 muffled. RESPIRATION: Breath sounds diminished at the bases. A few scattered rhonchi. ABDOMEN: Soft, nontender. No mass palpable. LEGS: No edema. No swelling. NERVOUS SYSTEM: Higher functions as mentioned earlier. Moves all 4 limbs. No focal motor or sensory deficit. Mild tremulousness present. SKIN: No ulcer, rash, bleeding. JOINTS: No active deforming arthropathy. LABS: WBC 9.7, MCV 100.5, sodium 135, potassium 3.2. Other labs are noted. ASSESSMENT: 1. Acute alcohol intoxication. 2. Fall and right rib fracture 9-10, 10 anteriorly. 3. Acute renal failure with possible dehydration acute tubular necrosis. 4. Hypokalemia. 5. Hyponatremia. 6. Hypomagnesemia. 7. Elevated AST ALT, alkaline phosphatase, possibly alcoholic hepatitis. 8. Increased mean corpuscular volume. 9. Hypertension. 10.Hyperlipidemia. 11.History of pneumonia. 12.Degenerative joint disease. 13.History of diverticular disease. 14.History of bladder surgery. 15.History of anxiety, depression. 16.Remote history of nicotine dependence. 17.FULL CODE. RECOMMENDATIONS AND DISCUSSION: In this 75-year-old woman who presented with multiple complex medical issues, at this time I recommend to continue the current medications, continue with symptomatic treatment. Otherwise, recommend pain medication. CIWA protocol. Repeat labs. Replace and recheck potassium and magnesium. Will follow the patient closely with you. Patient may be asked to follow up with primary physician closely after discharge. Also recommend PT/OT, social service evaluation for evaluation of the home situation as well. Thank you for letting us participate in the care of this patient. MMODL / IJN: [id number] /
[2021-06-24] MEDS: THIAMINE 100 MG TAB PO SCH (17:00)
[2021-06-24] MEDS: ATORVASTATIN 40 MG TAB PO SCH (20:58)
[2021-06-24] MEDS: HEPARIN SODIUM,PORCINE/PF 5,000 UNIT/0.5 ML SYRINGE SQ SCH (20:58)
[2021-06-25] MEDS: IBUPROFEN 400 MG TAB PO PRN ×4 (01:16→21:09)
[2021-06-25] MEDS: SODIUM CHLORIDE 0.9% 1,000 ML IV SCH ×2 (05:43→19:10)
[2021-06-25] MEDS: ASPIRIN 81 MG PO SCH (07:50)
[2021-06-25] MEDS: PANTOPRAZOLE 40 MG/10 ML VIAL IVP SCH ×2 (07:51→20:38)
[2021-06-25] MEDS: THIAMINE 100 MG TAB PO SCH ×2 (07:51→17:24)
[2021-06-25] MEDS: HEPARIN SODIUM,PORCINE/PF 5,000 UNIT/0.5 ML SYRINGE SQ SCH ×2 (07:51→20:38)
[2021-06-25] MEDS: ESCITALOPRAM 10 MG TAB PO SCH (08:09)
[2021-06-25] MEDS: MEMANTINE 10 MG TAB PO SCH ×2 (08:09→21:09)
[2021-06-25] MEDS: atenoloL 50 MG TAB PO SCH (08:09)
[2021-06-25 09:13] LABS: Basophils # (A) 0.04 X 10*3/uL (0.00-0.10); Basophils % (A) 0.6 %; Eosinophils # (A) 0.72 X 10*3/uL (0.04-0.35); Eosinophils % (A) 10.3 %; HCT 33.2 % (37.2-46.3); Lymphocytes # (A) 1.03 X 10*3/uL (0.90-5.00); Lymphocytes % (A) 14.7 %; MCH 33.7 pg (27.0-32.0); MCHC 33.1 g/dL (32.0-37.0); MCV 101.8 fL (80.0-97.0); Mean Platelet Volume 10.6 fL (9.5-12.2); Monocytes # (A) 0.36 X 10*3/uL (0.20-1.00); Monocytes % (A) 5.1 %; Neutrophils # (A) 4.83 X 10*3/uL (1.80-7.70); Platelet Count 260 X 10*3/uL (140-440); RBC 3.26 X 10*6/uL (4.10-5.20); RDW 11.9 % (11.5-14.5)
[2021-06-25 09:48] LABS: African American GFR (CKD) 73.5 (60.0-200.0); Albumin 2.6 g/dL (3.8-4.9); Albumin/Globulin Ratio 1.24 (1.60-3.17); Anion Gap 10.5 mmol/L (10.00-18.00); BUN/Creat Ratio 23.56 Ratio (12.00-20.00); Blood Urea Nitrogen 21.2 mg/dL (9.0-27.0); Calcium 7.5 mg/dL (8.7-10.3); Carbon Dioxide 18.5 mmol/L (20.0-27.5); Globulin 2.1 g/dL (1.6-3.3); Magnesium 1.4 mg/dL (1.5-2.4); Non-African American GFR(CKD) 63.4 (60.0-200.0); Potassium 3.5 mmol/L (3.5-5.5); Total Bilirubin 0.4 mg/dL (0.30-1.20); Total Protein 4.7 g/dL (6.2-8.2)
[2021-06-25] MEDS: FOLIC ACID 1 MG TAB PO SCH (12:46)
--- NOTE | 2021-06-25 13:21 | P.PN ---
Progress Note - Text Progress Note Date: 06/25/21 S patient still has some complaints of weakness and fatigue. She does not feel well enough to go home. On exam vital signs are stable. Abdomen is soft. The patient is being set up to be discharged to rehab. There is no surgical intervention planned.
[2021-06-25] MEDS ORDERED: Magnesium Replacement Protocol 1 EACH MISC MISCELLANE PRN (13:36)
[2021-06-25] MEDS: MAGNESIUM SULFATE-D5W PMX 1 GM in DEXTROSE/WATER 1 100ML.BAG IVPB SCH ×3 (14:46→17:24)
--- NOTE | 2021-06-25 20:05 | PN ---
PROGRESS NOTE DATE OF SERVICE: 06/25/2021 This 75-year-old woman who was admitted with acute alcohol intoxication also had significant gait dysfunction. No chest pain. No palpitations. PT/OT evaluated the patient and possibly for discharged to rehab facility. The patient also had poor social support. Currently the patient is living by herself. No chest pain. No palpitations. No fever. PHYSICAL EXAMINATION: Alert and oriented times three. Pulse 64, blood pressure 143/83, respiration 20, temperature 97.6, pulse ox 100 percent on room air. HEENT: Conjunctivae normal. Neck: No JVD. Cardiac: S1, S2 muffled. Respiratory: Breath sounds diminished in the bases. No rhonchi. No crackles. Abdomen: Soft. Nervous system: Diffusely weak. LABS: WBC 7, hemoglobin 11, sodium 132. TSH is normal. ASSESSMENT: 1. Acute alcohol intoxication. 2. Fall and right hip fracture 9, 10 anteriorly. 3. Acute renal failure with possible dehydration with acute tubular necrosis. 4. Hypokalemia. 5. Hyponatremia. 6. Hypomagnesemia. 7. Elevated AST/ALT, alkaline phosphatase, possibly alcoholic hepatitis. 8. Increased MCV. 9. Hypertension. 10.Hyperlipidemia. 11.History of pneumonia. 12.History of degenerative joint disease. 13.History of diverticular disease. 14.History of bladder surgery. 15.History of anxiety, depression. 16.Remote history of nicotine dependence. 17.FULL CODE. RECOMMENDATIONS AND DISCUSSION: Continue current medications, management and symptomatic treatment. Otherwise, at this time, I would recommend repeat labs and PT/OT evaluation, possible ECF rehab. Further recommendations to follow. MMODL / IJN: [id number] /
[2021-06-25] MEDS: ATORVASTATIN 40 MG TAB PO SCH (20:38)
[2021-06-25] MEDS: CALCIUM CARBONATE 500 MG CHEWABLE PO PRN (20:38)
[2021-06-26] MEDS: SODIUM CHLORIDE 0.9% 1,000 ML IV SCH ×2 (03:12→10:45)
[2021-06-26 07:20] VITALS: BP 166/81; RESP 16; TEMP 97.9
[2021-06-26] MEDS: THIAMINE 100 MG TAB PO SCH (08:55)
[2021-06-26] MEDS: ESCITALOPRAM 10 MG TAB PO SCH (08:55)
[2021-06-26] MEDS: PANTOPRAZOLE 40 MG/10 ML VIAL IVP SCH (08:55)
[2021-06-26] MEDS: atenoloL 50 MG TAB PO SCH (08:55)
[2021-06-26] MEDS: ASPIRIN 81 MG PO SCH (08:55)
[2021-06-26] MEDS: MEMANTINE 10 MG TAB PO SCH (08:55)
[2021-06-26] MEDS: HEPARIN SODIUM,PORCINE/PF 5,000 UNIT/0.5 ML SYRINGE SQ SCH (08:55)
[2021-06-26 09:13] VITALS: PULSE 70
[2021-06-26] MEDS: IBUPROFEN 400 MG TAB PO PRN (09:13)
[2021-06-26 09:37] LABS: African American GFR (CKD) 99.6 (60.0-200.0); Anion Gap 11.6 mmol/L (10.00-18.00); BUN/Creat Ratio 18.57 Ratio (12.00-20.00); Calcium 7.6 mg/dL (8.7-10.3); Carbon Dioxide 20.4 mmol/L (20.0-27.5); Magnesium 1.8 mg/dL (1.5-2.4); Potassium 3.7 mmol/L (3.5-5.5)
[2021-06-26 09:42] LABS: Basophils # (A) 0.04 X 10*3/uL (0.00-0.10); Basophils % (A) 0.6 %; Eosinophils # (A) 0.63 X 10*3/uL (0.04-0.35); Eosinophils % (A) 9.8 %; HCT 30.7 % (37.2-46.3); HGB 10.2 g/dL (12.0-15.0); Lymphocytes # (A) 1.03 X 10*3/uL (0.90-5.00); MCH 33.9 pg (27.0-32.0); MCHC 33.2 g/dL (32.0-37.0); Mean Platelet Volume 10.9 fL (9.5-12.2); Monocytes # (A) 0.58 X 10*3/uL (0.20-1.00); Neutrophils # (A) 4.14 X 10*3/uL (1.80-7.70); Neutrophils % (A) 64.3 %; Platelet Count 258 X 10*3/uL (140-440); RBC 3.01 X 10*6/uL (4.10-5.20); RDW 11.9 % (11.5-14.5); WBC 6.44 X 10*3/uL (4.50-10.00)
[2021-06-26] MEDS: CALCIUM CARBONATE 500 MG CHEWABLE PO PRN (10:43)
[2021-06-26] MEDS: FOLIC ACID 1 MG TAB PO SCH (12:19)
--- NOTE | 2021-06-26 13:26 | P.DS ---
Providers Date of admission: 06/25/21 16:12 Expected date of discharge: 06/26/21 Attending physician: Sriram Mcgraw Consults: 06/23/21 21:16 Consult Physician Urgent Consulting Provider: Christopher Chinchilla Consult Reason/Comments: acute fall, concussion without loc, scalp lac, right rib fx, hypomag Do you want consulting provider notified?: Yes Primary care physician: Bertha Marti Hospital Course: Is a 72-year-old female who was admitted through emergency room after history of fall. Patient has scalp laceration. Patient received supportive care. Patient was discharged to [facility] on 1230. She will follow-up as needed. Patient Condition at Discharge: Stable Plan - Discharge Summary New Discharge Prescriptions: No Action Atenolol [Tenormin] 100 mg PO DAILY Aspirin [Adult Low Dose Aspirin EC] 81 mg PO DAILY Memantine [Namenda] 10 mg PO BID Escitalopram [Lexapro] 10 mg PO DAILY Atorvastatin Calcium [Lipitor] 40 mg PO HS Discharge Medication List Aspirin [Adult Low Dose Aspirin EC] 81 mg PO DAILY 04/22/16 [History] Atenolol [Tenormin] 100 mg PO DAILY 04/22/16 [History] Atorvastatin Calcium [Lipitor] 40 mg PO HS 06/23/21 [History] Escitalopram [Lexapro] 10 mg PO DAILY 06/23/21 [History] Memantine [Namenda] 10 mg PO BID 06/23/21 [History] Follow up Appointment(s)/Referral(s): Bertha Marti MD [Primary Care Provider] - 1-2 days Activity/Diet/Wound Care/Special Instructions: PT REQUESTING INFLUENZA VACCINE PRIOR TO DISCHARGE. Discharge Disposition: TRANSFER TO SNF/F
--- NOTE | 2021-06-26 17:48 | PN ---
PROGRESS NOTE DATE OF SERVICE: 06/26/2021 This 75-year-old woman who was admitted with acute alcohol intoxication also had a fall and right rib fractures. The patient is being scheduled to go to rehab at this time. No chest pain. No palpitations. No fever. PHYSICAL EXAMINATION: Alert and oriented x3. Pulse is 58, blood pressure 166/81, respirations 16, temperature 97.9, pulse ox 100% on room air. HEENT: Conjunctivae normal. NECK: No jugular venous distention. CARDIOVASCULAR: S1, S2 muffled. RESPIRATION: Breath sounds diminished at the bases. A few scattered rhonchi and crackles. ABDOMEN: Soft. NERVOUS SYSTEM: No focal deficit. LABS: WBC 6.2, hemoglobin 10.2. ASSESSMENT: 1. Acute alcohol intoxication, present on admission. 2. Fall and right rib fractures 9 and 10 anteriorly. 3. Acute renal failure with possible dehydration with acute renal failure and acute tubular necrosis, present on admission. 4. Hypokalemia. 5. Hyponatremia. 6. Hypomagnesemia. 7. Elevated AST ALT, alkaline phosphatase; possibly acute alcoholic hepatitis. 8. Increased mean corpuscular volume. 9. Hypertension. 10.Hyperlipidemia. 11.History of pneumonia. 12.History of degenerative joint disease. 13.History of diverticular disease. 14.History of bladder surgery. 15.History of anxiety, depression. 16.Remote history of nicotine dependence. 17.FULL CODE. RECOMMENDATIONS AND DISCUSSION: I recommend to continue current medications, continue with the monitoring, symptomatic treatment. Patient is being discharged to [facility]. Guarded prognosis. Further recommendations to follow. MMODL / IJN: [id number] /
== END 2021-06-26 15:45 | DRG 640 ==
LOC: EC 17:35 → 6NMEDSUR 21:11 → OBSVTOIN 06-25 16:12
PROVIDERS: ADMIT Surgery; ATTEND Surgery
PROC: 0HQ0XZZ Repair Scalp Skin, External Approach (ICD-10-PCS; principal; 2021-06-23)
DX: E83.42 Hypomagnesemia (principal); N17.0 Acute kidney failure with tubular necrosis; E87.1 Hypo-osmolality and hyponatremia; S22.41XA Multiple fractures of ribs, right side, initial encounter for closed fracture; K70.10 Alcoholic hepatitis without ascites; S01.01XA Laceration without foreign body of scalp, initial encounter; H54.7 Unspecified visual loss; F10.129 Alcohol abuse with intoxication, unspecified; Z20.822 Contact with and (suspected) exposure to COVID-19; S06.0X0A Concussion without loss of consciousness, initial encounter; Y90.1 Blood alcohol level of 20-39 mg/100 ml; I10 Essential (primary) hypertension; E86.0 Dehydration; H91.90 Unspecified hearing loss, unspecified ear; E78.5 Hyperlipidemia, unspecified; F41.9 Anxiety disorder, unspecified; F32.A Depression, unspecified; K57.90 Diverticulosis of intestine, part unspecified, without perforation or abscess without bleeding; M54.50 Low back pain, unspecified; N39.3 Stress incontinence (female) (male); M54.2 Cervicalgia; R26.9 Unspecified abnormalities of gait and mobility; M85.80 Other specified disorders of bone density and structure, unspecified site; M19.90 Unspecified osteoarthritis, unspecified site; Z79.82 Long term (current) use of aspirin; Z79.899 Other long term (current) drug therapy; Z63.8 Other specified problems related to primary support group; Z60.2 Problems related to living alone; Z87.01 Personal history of pneumonia (recurrent); Z87.891 Personal history of nicotine dependence; Z86.11 Personal history of tuberculosis; Z98.51 Tubal ligation status; Z87.448 Personal history of other diseases of urinary system; Z98.890 Other specified postprocedural states; W19.XXXA Unspecified fall, initial encounter; Y92.009 Unspecified place in unspecified non-institutional (private) residence as the place of occurrence of the external cause; Z88.5 Allergy status to narcotic agent; Z88.8 Allergy status to other drugs, medicaments and biological substances; Z88.3 Allergy status to other anti-infective agents; Z82.49 Family history of ischemic heart disease and other diseases of the circulatory system; Z80.9 Family history of malignant neoplasm, unspecified
CPT/HCPCS: 36415; 70450; 72125; 80048; 80053; 80320; 81001; 82550; 83605; 83735; 84443; 84484; 85025; 85610; 85730; 87635; 93005; 96361; 96365; 99285